=== PATIENT | male | born 1975 | race African-American/Black ===

== ENCOUNTER 2016-09-13 08:30 | Day surgery (SDC) | payer OTHER ==
[~2016-09-13] VITALS: Ht 182.9 cm; Wt 122.0 kg
[~2016-09-13 08:30] MED LIST: ALLEGRA ALLERG180 MG PO; CONCERTA18 MG PO; FISH OIL 1,0001 EAC7 PO; FLEXERIL10 MG PO; GINSENG100 MG PO; MULTIVITAMIN1 EAC2 PO; NAPROSYN500 MG PO; VITAMIN C1000 MG PO
[2016-09-13 08:51] VITALS: BP 137/73
[2016-09-13 14:37] VITALS: BP 112/62
[2016-09-13 15:02] VITALS: BP 142/79
== END 2016-09-13 15:10 | disposition home or self-care (01) ==
LOC: SDC 08:30
DX: H69.83 Other specified disorders of Eustachian tube, bilateral (principal); J34.3 Hypertrophy of nasal turbinates; R09.81 Nasal congestion; J30.9 Allergic rhinitis, unspecified; Z72.0 Tobacco use; Z81.1 Family history of alcohol abuse and dependence; Z82.49 Family history of ischemic heart disease and other diseases of the circulatory system; Z82.61 Family history of arthritis; Z83.511 Family history of glaucoma
CPT/HCPCS: J0131; J0330; J2250; J2405; J3010

== ENCOUNTER 2016-09-23 08:21 | Emergency (ER) | payer OTHER ==
[~2016-09-23] VITALS: Ht 180.3 cm; Wt 122.7 kg
[2016-09-23] MEDS ORDERED: MOTRIN800 MG PO (10:52)
[2016-09-23] MEDS ORDERED: FLEXERIL10 MG PO (10:52)
[2016-09-23 10:57] VITALS: BP 119/76
== END 2016-09-23 11:02 | disposition home or self-care (01) ==
LOC: EME 08:21
DX: S63.502A Unspecified sprain of left wrist, initial encounter (principal); V49.40XA Driver injured in collision with unspecified motor vehicles in traffic accident, initial encounter; Y92.410 Unspecified street and highway as the place of occurrence of the external cause
CPT/HCPCS: 73090; 73110; 99281; 99283

== ENCOUNTER 2017-03-17 02:30 | Emergency (ER) | payer OTHER ==
[~2017-03-17] VITALS: Ht 185.4 cm; Wt 127.3 kg
[~2017-03-17 02:30] MED LIST changes: +MOTRIN800 MG PO
[2017-03-17] MEDS ORDERED: NAPROSYN500 MG PO (02:51)
[2017-03-17] MEDS ORDERED: ULTRAM50 MG PO (02:51)
[2017-03-17] MEDS ORDERED: FLEXERIL10 MG PO (02:51)
[2017-03-17 03:30] VITALS: BP 118/64
== END 2017-03-17 03:31 | disposition home or self-care (01) ==
LOC: EME 02:30
DX: M62.830 Muscle spasm of back (principal); V49.40XA Driver injured in collision with unspecified motor vehicles in traffic accident, initial encounter
CPT/HCPCS: 99281; 99283